=== PATIENT | female | born 1975 | race Caucasian/White ===

== ENCOUNTER 2016-04-11 13:17 | Emergency (ER) | payer BC ==
[~2016-04-11] VITALS: Ht 170.2 cm; Wt 113.6 kg
[~2016-04-11 13:17] MED LIST: ADDERALL10 MG PO; AMOXICILLIN500 M1 PO; BENADRYL50 MG PO; DOCUSATE SODIU100 MG PO; EXCEDRIN MIGRA1 EAC3 PO; FLAGYL500 MG PO; GRISEOFULVIN500 MG PO; HYDROCODON-ACE1 EAC7 PO; IBUPROFEN800 MG PO; KEFLEX500 MG PO; LISINOPRIL10 MG PO; MOTRIN800 MG PO; NAPROXEN500 MG PO; NOHOMEMEDS; NORVASC10 MG PO; PERCOCET 5/31 TABLET PO; PREDNISONE10 MG PO; SIMVASTATIN10 MG PO; TESSALON PERLE100 MG PO; VALIUM5 MG PO; ZESTRIL10 MG PO
[2016-04-11 15:32] LABS: BILIRUBIN NEGATIVE; BLOOD NEGATIVE; COLOR YELLOW ((YELLOW)); GLUCOSE (STRIP) NEGATIVE; KETONES NEGATIVE; LEUKOCYTES NEGATIVE; NITRITE NEGATIVE; PROTEIN (STRIP) 30; SPECIFIC GRAVITY 1.025 (1.000-1.030); UROBILINOGEN 0.2 MG/DL (0.2-1.0)
[2016-04-11 15:37] LABS: ADD MIUA? NO
[2016-04-11] MEDS ORDERED: MOTRIN800 MG PO (16:56)
[2016-04-11] MEDS ORDERED: VALIUM5 MG PO (16:56)
[2016-04-11] MEDS ORDERED: FIORICET 50-301 EACH PO (16:56)
[2016-04-11 17:09] VITALS: BP 130/79
== END 2016-04-11 17:11 | disposition home or self-care (01) ==
LOC: EME 13:17
PROVIDERS: Physician Assistant
DX: R51 Headache (principal); M62.838 Other muscle spasm
CPT/HCPCS: 81003; 99281; 99284; J1200; J1885; J2765; J2930; J7030

== ENCOUNTER 2016-08-16 18:03 | Emergency (ER) | payer BC ==
[~2016-08-16] VITALS: Ht 170.2 cm; Wt 106.1 kg
[~2016-08-16 18:03] MED LIST changes: +FIORICET 50-301 EACH PO
[2016-08-16] MEDS ORDERED: LISINOPRIL10 MG PO (22:05)
[2016-08-16 23:03] VITALS: BP 175/107
== END 2016-08-16 23:05 | disposition home or self-care (01) ==
LOC: EME 18:03
DX: G43.909 Migraine, unspecified, not intractable, without status migrainosus (principal); I10 Essential (primary) hypertension
CPT/HCPCS: 70450; 99281; 99283; J1885

== ENCOUNTER 2016-12-09 19:56 | Emergency (ER) | payer BC ==
[~2016-12-09] VITALS: Ht 170.2 cm; Wt 96.7 kg
[2016-12-09 20:31] VITALS: BP 155/95
[2016-12-09] MEDS ORDERED: KEFLEX500 MG PO (22:57)
== END 2016-12-09 23:16 | disposition home or self-care (01) ==
LOC: EME 19:56
DX: S60.464A Insect bite (nonvenomous) of right ring finger, initial encounter (principal); W57.XXXA Bitten or stung by nonvenomous insect and other nonvenomous arthropods, initial encounter; Y93.01 Activity, walking, marching and hiking; I10 Essential (primary) hypertension
CPT/HCPCS: 99281; 99284

== ENCOUNTER 2017-04-05 20:45 | Emergency (ER) | payer BC ==
[~2017-04-05] VITALS: Ht 170.2 cm; Wt 92.2 kg
[2017-04-05 21:31] LABS: HEMATOCRIT 37.6 % (36.0-46.0); HEMOGLOBIN 13.3 G/DL (11.9-15.5); MCH 32.5 PG (29.0-34.0); MCHC 35.4 G/DL (30.0-36.0); MCV 91.9 FL (83-99); PLATELET COUNT 191 K/uL (156-360); RBC DIS.WIDTH-CV 11.6 % (11.8-14.6); RED BLOOD COUNT 4.09 M/uL (3.80-5.20); WHITE BLOOD COUNT 8.8 K/uL (4.1-10.2)
[2017-04-05 21:42] LABS: CHLORIDE 108 mEq/L (99-109); POTASSIUM 3.9 mEq/L (3.7-5.4); SODIUM 140 mEq/L (136-147)
[2017-04-05 21:45] LABS: GLUCOSE 135 mg/dL (70-99); TOTAL PROTEIN 6.8 g/dL (6.4-8.3)
[2017-04-05 21:47] LABS: TOTAL BILIRUBIN 0.3 mg/dL (0.0-1.0)
[2017-04-05 21:48] LABS: ALKALINE PHOSPHATASE 68 IU/L (3-129); GFR ESTIMATE (CALCULATED) > 59 mL/min/
[2017-04-05 21:49] LABS: UREA NITROGEN (BUN) 19 mg/dL (9-23)
[2017-04-05 21:50] LABS: AST (GOT) 16 IU/L (2-34)
[2017-04-05 21:51] LABS: ALT (GPT) 11 IU/L (3-49)
[2017-04-05 21:52] LABS: LIPASE 30 U/L (1.0-51.0)
[2017-04-05 21:54] LABS: APPEARANCE CLEAR ((CLEAR)); BILIRUBIN NEGATIVE; BLOOD NEGATIVE; COLOR STRAW ((YELLOW)); GLUCOSE (STRIP) NEGATIVE; KETONES NEGATIVE; LEUKOCYTES NEGATIVE; NITRITE NEGATIVE; PROTEIN (STRIP) NEGATIVE; SPECIFIC GRAVITY 1.025 (1.000-1.030); UCUL ADDED? NO; UROBILINOGEN 0.2 MG/DL (0.2-1.0)
[2017-04-05] MEDS ORDERED: MOTRIN800 MG PO (22:36)
[2017-04-05 23:15] VITALS: BP 175/119
== END 2017-04-05 23:19 | disposition home or self-care (01) ==
LOC: EME 20:45
PROVIDERS: Nurse Practitioner Family
DX: R10.31 Right lower quadrant pain (principal); Z88.5 Allergy status to narcotic agent; F90.9 Attention-deficit hyperactivity disorder, unspecified type; N83.201 Unspecified ovarian cyst, right side; Z90.710 Acquired absence of both cervix and uterus
CPT/HCPCS: 74177; 80053; 81003; 83690; 85027; 99281; 99284; J1885; J7030

== ENCOUNTER 2017-05-29 22:13 | Inpatient (IN) | payer BC ==
[~2017-05-29] VITALS: Ht 172.7 cm; Wt 92.5 kg
[~2017-05-29 22:13] MED LIST changes: +CLARITIN,ALAVAR10 MG PO; +COZAAR50 MG PO; +MAXALT10 MG PO; +TOPAMAX25 MG PO
[2017-05-30 12:05] VITALS: BP 119/92
[2017-05-30 19:00] VITALS: BP 135/88
[2017-05-30 19:50] LABS: HEMATOCRIT 42.4 % (36.0-46.0); HEMOGLOBIN 14.8 G/DL (11.9-15.5); MCH 32.2 PG (29.0-34.0); MCHC 34.9 G/DL (30.0-36.0); MCV 92.2 FL (83-99); PLATELET COUNT 201 K/uL (156-360); RBC DIS.WIDTH-CV 11.5 % (11.8-14.6); RBC DIS.WIDTH-SD 38.6 % (39-53); WHITE BLOOD COUNT 15.7 K/uL (4.1-10.2)
[2017-05-30 20:02] LABS: CHLORIDE 102 mEq/L (99-109); POTASSIUM 3.9 mEq/L (3.7-5.4); SODIUM 136 mEq/L (136-147)
[2017-05-30 20:04] LABS: GLUCOSE 176 mg/dL (70-99)
[2017-05-30 20:08] LABS: CREATININE 0.9 mg/dL (0.6-1.3); GFR ESTIMATE (CALCULATED) > 59 mL/min/
[2017-05-30 20:09] LABS: UREA NITROGEN (BUN) 14 mg/dL (9-23)
[2017-05-31 00:43] VITALS: BP 169/101
[2017-05-31 00:53] VITALS: BP 136/92
[2017-05-31 06:34] LABS: HEMATOCRIT 43.5 % (36.0-46.0); HEMOGLOBIN 14.7 G/DL (11.9-15.5); MCH 31.1 PG (29.0-34.0); MCHC 33.8 G/DL (30.0-36.0); PLATELET COUNT 248 K/uL (156-360); RBC DIS.WIDTH-CV 11.2 % (11.8-14.6); RBC DIS.WIDTH-SD 37.9 % (39-53); RED BLOOD COUNT 4.73 M/uL (3.80-5.20); WHITE BLOOD COUNT 15.2 K/uL (4.1-10.2)
[2017-05-31 07:03] LABS: CHLORIDE 100 MEQ/L (99-109); CREATININE 0.8 MG/DL (0.6-1.3); GFR ESTIMATE (CALCULATED) > 59 mL/min/; GLUCOSE 146 mg/dL (70-99); POTASSIUM 3.9 MEQ/L (3.7-5.4); SODIUM 136 MEQ/L (136-147); UREA NITROGEN (BUN) 10 mg/dL (9-23)
[2017-05-31 07:19] VITALS: BP 139/84
[2017-05-31] MEDS ORDERED: TRAMADOL HCL50 MG PO (09:28)
[2017-05-31 12:00] VITALS: BP 138/80
[2017-05-31 16:05] VITALS: BP 113/77
[2017-05-31 20:01] VITALS: BP 138/80
[2017-06-01 00:05] VITALS: BP 152/82
[2017-06-01 04:26] VITALS: BP 142/84
[2017-06-01 06:44] LABS: HEMATOCRIT 37.2 % (36.0-46.0); MCHC 33.9 G/DL (30.0-36.0); MCV 94.4 FL (83-99); PLATELET COUNT 186 K/uL (156-360); RBC DIS.WIDTH-CV 11.7 % (11.8-14.6); RBC DIS.WIDTH-SD 40.4 % (39-53); RED BLOOD COUNT 3.94 M/uL (3.80-5.20); WHITE BLOOD COUNT 10.4 K/uL (4.1-10.2)
[2017-06-01 06:45] LABS: HEMOGLOBIN 12.6 G/DL (11.9-15.5)
[2017-06-01 07:02] LABS: CHLORIDE 106 MEQ/L (99-109); GFR ESTIMATE (CALCULATED) > 59 mL/min/; POTASSIUM 3.7 MEQ/L (3.7-5.4); SODIUM 141 MEQ/L (136-147); UREA NITROGEN (BUN) 19 mg/dL (9-23)
[2017-06-01 07:03] LABS: GLUCOSE 98 mg/dL (70-99)
[2017-06-01 07:08] VITALS: BP 145/79
== END 2017-06-01 11:27 | disposition home or self-care (01) | DRG 743 ==
LOC: ENRESERV 22:13 → 2SOUTH 05-30 10:42 → ENRESERV 05-30 16:06 → 2EAST 05-30 19:10
PROVIDERS: Obstetrics & Gynecology Gynecologic Oncology
DX: D27.1 Benign neoplasm of left ovary (principal); D27.0 Benign neoplasm of right ovary; E78.2 Mixed hyperlipidemia; I10 Essential (primary) hypertension; G43.909 Migraine, unspecified, not intractable, without status migrainosus; E66.9 Obesity, unspecified; Z68.30 Body mass index [BMI] 30.0-30.9, adult; Z85.42 Personal history of malignant neoplasm of other parts of uterus
CPT/HCPCS: 36415; 80048; 85027; 86850; 86900; 86901; 86920; 88307; 94799; C1758; J0131; J0360; J0690; J1100; J1170; J1650; J1885; J2250; J2405; J2710; J2765; J2795; J7643

== ENCOUNTER 2017-09-21 10:14 | Emergency (ER) | payer BC ==
[~2017-09-21] VITALS: Ht 172.7 cm; Wt 90.4 kg
[~2017-09-21 10:14] MED LIST changes: +TRAMADOL HCL50 MG PO
[2017-09-21 12:06] LABS: HEMATOCRIT 44.3 % (36.0-46.0); HEMOGLOBIN 15.5 G/DL (11.9-15.5); MCH 31.6 PG (29.0-34.0); MCV 90.4 FL (83-99); PLATELET COUNT 210 K/uL (156-360); RBC DIS.WIDTH-CV 11.6 % (11.8-14.6); RBC DIS.WIDTH-SD 37.9 % (39-53); WHITE BLOOD COUNT 6.9 K/uL (4.1-10.2)
[2017-09-21 12:17] LABS: CHLORIDE 106 mEq/L (99-109); POTASSIUM 4.4 mEq/L (3.7-5.4); SODIUM 142 mEq/L (136-147)
[2017-09-21 12:19] LABS: GLUCOSE 100 mg/dL (70-99)
[2017-09-21 12:23] LABS: GFR ESTIMATE (CALCULATED) > 59 mL/min/
[2017-09-21 12:24] LABS: UREA NITROGEN (BUN) 14 mg/dL (9-23)
[2017-09-21 13:10] VITALS: BP 159/120
[2017-09-21 13:17] LABS: APPEARANCE BLOODY ((CLEAR)); COLOR BLOODY ((YELLOW)); GLUCOSE (STRIP) NEGATIVE; LEUKOCYTES TRACE; NITRITE NEGATIVE; PROTEIN (STRIP) 300; SPECIFIC GRAVITY 1.018 (1.000-1.030)
[2017-09-21 13:18] LABS: BILIRUBIN NEGATIVE; BLOOD LARGE; KETONES NEGATIVE; UROBILINOGEN 0.2 MG/DL (0.2-1.0)
[2017-09-21 13:19] LABS: RED BLOOD CELLS TNTC /HPF (0-5)
== END 2017-09-21 13:11 | disposition home or self-care (01) ==
LOC: EME 10:14
PROVIDERS: Nurse Practitioner Family
DX: N76.0 Acute vaginitis (principal); B96.89 Other specified bacterial agents as the cause of diseases classified elsewhere; N93.9 Abnormal uterine and vaginal bleeding, unspecified; Z85.42 Personal history of malignant neoplasm of other parts of uterus; Z90.710 Acquired absence of both cervix and uterus; Z88.5 Allergy status to narcotic agent; F90.9 Attention-deficit hyperactivity disorder, unspecified type
CPT/HCPCS: 80048; 81003; 85027; 99281; 99284